=== PATIENT | female | born 1950 ===

== ENCOUNTER 2023-11-05 04:55 | Inpatient (IN) | payer OTHER ==
[~2023-11-05] VITALS: Ht 160 cm; Wt 84.9 kg
[2023-11-05] MEDS ORDERED: CELECOXIB 100 MG CAPSULE ONE (05:10)
[2023-11-05] MEDS ORDERED: ACETAMINOPHEN 500 MG TABLET ONE (05:10)
[2023-11-05] MEDS ORDERED: SCOPOLAMINE HYDROBROMIDE 1 MG PATCH .72 H (TRANSDERM-SCOP) TD ONE (05:10)
[2023-11-05] MEDS ORDERED: oxyCODONE HCL 10 MG TAB.ER.12H PO ONE (05:11)
[2023-11-05] MEDS ORDERED: CEFAZOLIN 2 GM IVPB PREMIX 0 ML IV ONE (05:15)
[2023-11-05] MEDS: CELECOXIB 100 MG CAPSULE PO ONE (05:42)
[2023-11-05] MEDS: ACETAMINOPHEN 500 MG TABLET PO ONE (05:42)
[2023-11-05] MEDS: GABAPENTIN 300 MG CAPSULE PO ONE (05:42)
[2023-11-05] MEDS: SCOPOLAMINE HYDROBROMIDE 1 MG PATCH .72 H (TRANSDERM-SCOP) TD ONE (05:42)
[2023-11-05] MEDS ORDERED: CEFAZOLIN SOD 2 GM in D5W 50 ML IV ONE (06:00)
[2023-11-05] MEDS: oxyCODONE HCL 10 MG TAB.ER.12H PO ONE (07:04)
[2023-11-05] MEDS ORDERED: DIPHENHYDRAMINE HCL 25 MG CAPSULE PO PRN (07:15)
[2023-11-05] MEDS ORDERED: BISACODYL 10 MG/SUPPOSITORY RC PRN (07:15)
[2023-11-05] MEDS ORDERED: NALOXONE HCL 0.4 MG/ML AMP (NARCAN) IVP PRN ×3 (07:15→08:15)
[2023-11-05] MEDS ORDERED: LACTULOSE 20 GM/30 ML UDC PO PRN (07:15)
[2023-11-05] MEDS ORDERED: NALOXONE HCL 2 MG/2 ML SYR IVP PRN (07:15)
[2023-11-05] MEDS ORDERED: METOCLOPRAMIDE HCL 10 MG/2 ML VIAL IVP PRN (07:15)
[2023-11-05] MEDS ORDERED: hydrALAZINE HCL 20 MG/ML VIAL IV PRN (08:15)
[2023-11-05] MEDS ORDERED: HYDROmorphone 1 MG/ML INJ. CARTRIDGE IVP PRN ×5 (08:15→11:00)
[2023-11-05 10:41] VITALS: BP_SYST 120; PULSE 85; RESP 18; TEMP 97.1; O2SAT 99
[2023-11-05] MEDS ORDERED: traMADol HCL HCL 50 MG TABLET (ULTRAM) PO PRN (11:00)
[2023-11-05] MEDS ORDERED: LORATADINE 10 MG TABLET PO PRN (11:00)
[2023-11-05] MEDS ORDERED: oxyCODONE HCL 5 MG TABLET PO PRN ×2 (11:00)
[2023-11-05] MEDS: ONDANSETRON HCL 4 MG/2 ML VIAL IVP PRN (11:08)
[2023-11-05] MEDS ORDERED: ONDANSETRON HCL 4 MG/2 ML VIAL IVP PRN (11:45)
[2023-11-05] MEDS ORDERED: ACETAMINOPHEN 500 MG TABLET PO SCH (14:00)
[2023-11-05] MEDS ORDERED: KETOROLAC TROMETHAMINE 10 MG TABLET (TORADOL) PO SCH (14:00)
[2023-11-05] MEDS ORDERED: SENNOSIDES/DOCUSATE SODIUM 1 TAB TABLET(SENOKOT-S) PO SCH (21:00)
[2023-11-06] MEDS ORDERED: ASPIRIN 81 MG TAB.CHEW PO SCH (09:00)
[2023-11-06] MEDS ORDERED: CELECOXIB 200 MG CAPSULE PO SCH (11:00)
== END 2023-11-05 11:30 | disposition home health service (06) | DRG 470 ==
LOC: SMU 04:55 → EDUNIT# 07:30
PROVIDERS: ADMIT Student in an Organized Health Care Education/Training Program; ATTEND Student in an Organized Health Care Education/Training Program
PROC: 0SRD0J9 Replacement of Left Knee Joint with Synthetic Substitute, Cemented, Open Approach (ICD-10-PCS; principal; 2023-11-05 07:10)
DX: M17.12 Unilateral primary osteoarthritis, left knee (principal); Z79.899 Other long term (current) drug therapy
CPT/HCPCS: 73560; 82948; 87081; 97110-GP; 97116-GP; 97530-GP; J0690; J0696; J7060